=== PATIENT | male | born 1955 | race Caucasian/White ===

== ENCOUNTER 2017-12-04 16:56 | Observation (INO) | payer OTHER ==
[~2017-12-04] VITALS: Ht 172.7 cm; Wt 95.1 kg
[2017-12-04] MEDS ORDERED: SODIUM CHLORIDE 0.9% 1000ML 1,000 ML IV STA (17:10)
[2017-12-04] MEDS ORDERED: OPTIRAY 320 IV PRN (17:30)
[2017-12-04 17:47] LABS: BASO % 0.3 %; BASO ABS # 0.03 K/uL (0-0.2); EOS % 0.2 %; EOS ABS # 0.02 K/uL (0-0.5); HEMATOCRIT 42.3 % (42-52); HEMOGLOBIN 15.5 g/dL (14.0-18.0); IG# 0.03 K/uL (0.00-0.02); LYMPH % 23.7 %; LYMPH ABS # 2.11 K/uL (1.2-3.4); MEAN CELL VOLUME 85.5 fL (80-100); MEAN CORPUSCULAR HEMOGLOBIN 31.3 pg (25-34); MEAN CORPUSCULAR HGB CONC 36.6 g/dl (32-36); MEAN PLATELET VOLUME 9.6 fL (7.4-10.4); MONO % 6.9 %; MONO ABS # 0.61 K/uL (0.11-0.59); NEUT % 68.6 %; NEUT ABS # 6.09 K/uL (1.4-6.5); PLATELET COUNT 233 K/uL (130-400); RED CELL DISTRIBUTION WIDTH SD 40.7 fL (36.4-46.3); WHITE BLOOD COUNT 8.89 K/uL (4.8-10.8)
[2017-12-04 18:03] LABS: ALT/SGPT 33 U/L (12-78); BLOOD UREA NITROGEN 7 mg/dl (7-18); CARBON DIOXIDE 23 mmol/L (21-32); CREATININE 0.77 mg/dl (0.60-1.40); GLUCOSE 111 mg/dl (70-99); LIPASE 100 U/L (73-393); POTASSIUM 3.4 mmol/L (3.5-5.1); SODIUM 129 mmol/L (136-145)
[2017-12-04 18:08] LABS: ALKALINE PHOSPHATASE 59 U/L (45-117); AST/SGOT 25 U/L (15-37); TOTAL PROTEIN 8.2 gm/dl (6.4-8.2)
[2017-12-04 18:12] LABS: PTT PATIENT 27.8 SECONDS (21.0-31.0)
--- NOTE | 2017-12-04 19:09 | DIAGNOSTIC IMAGING REPORT ---
CT ABD/PELVIS IV CONTRAST ONLY CLINICAL HISTORY: Abdominal pain. Rectal bleeding COMPARISON STUDY: None. TECHNIQUE: Following the IV administration of 93 mL of Optiray-320, CT scan of the abdomen and pelvis was performed from the lung bases to the proximal femurs. Images are reviewed in the axial, sagittal, and coronal planes. IV contrast was administered without complication. A dose lowering technique was utilized adhering to the principles of ALARA. CT DOSE: 748.71 mGy.cm FINDINGS: Lower chest: There is a 12 mm left lower lobe lung cyst. There is a small hiatal hernia Liver: The contrast-enhanced liver is normal in size, contour, and attenuation. There is no intrahepatic biliary ductal dilatation. The hepatic veins and portal veins are patent. Gallbladder: Unremarkable. Spleen: Normal in size and attenuation. Pancreas: Unremarkable. Adrenal glands: There is mild adrenal gland thickening Kidneys: There is symmetric renal cortical enhancement. The kidneys are normal in size without hydronephrosis. Bowel: There are no transition zones indicate bowel obstruction. The appendix appears normal. There is colonic diverticulosis. There are no acute peridiverticular inflammatory changes. Peritoneum: There is no intraperitoneal free air or abdominal ascites. Vasculature: The abdominal aorta is normal in course and caliber. Adenopathy: None. Pelvic viscera: The bladder is mildly distended. The prostate is mildly enlarged. Skeletal structures: No destructive osseous lesions are seen. There is a 2 cm subcutaneous soft tissue nodule within the midline lower back likely representing a sebaceous cyst IMPRESSION: 1. No evidence of bowel obstruction. No evidence of free air 2. Normal appendix. 3. Diverticulosis. No evidence of acute diverticulitis 4. Mildly distended urinary bladder Electronically signed by: Slade Jesus M.D. 12/04/2017 7:08 PM Dictated Date/Time: 12/04/2017 7:04 PM
--- NOTE | 2017-12-04 19:40 | EMERGENCY ROOM VISIT NOTE ---
History Report prepared by Shirley: Rima Gomez Under the Supervision of: Dr. Balaji Izaguirre M.D. First contact with patient: 17:08 Chief Complaint: RECTAL BLEEDING Stated Complaint: RECTAL BLEEDING Nursing Triage Summary: triage note: pt reports intermittent rectal bleeding since last night. History of Present Illness The patient is a 62 year old male who presents to the Emergency Room with complaints of persistent rectal bleeding starting last night. The patient was watching the Super Bowl and drinking alcohol last night. He stood up and could feel the blood running down his leg. The blood was red. The bleeding eventually stopped. He went to the bathroom twice today and had bleeding each time. He also had bleeding this afternoon after he stood up from his chair. He has been drinking a lot of water today and urinating often. He denies any fever, chills, cough, congestion, abdominal pain, nausea, vomiting, diarrhea, chest pain, SOB, headache, or dizziness. He has had rectal bleeding in the past, but it usually resolves quickly. He has never had this much bleeding before. He had a colonoscopy in 2013 which found diverticulosis, rectal polyps, and hemorrhoids. He had sclerotherapy. He drinks 6 cans of beer daily. He is not on any blood thinners. He has a history of hepatitis C and hypertension. He denies any history of cirrhosis. Source of History: patient Onset: last night Position: other (rectal) Quality: other (bleeding) Timing: other (persistent) Associated Symptoms: No fevers, No chills, No headache, No cough, No chest pain, No SOB, No nausea, No vomiting, No abdominal pain, No diarrhea Review of Systems See HPI for pertinent positives and negatives. A total of ten systems were reviewed and were otherwise negative. Past Medical & Surgical Medical Problems: (1) Hepatitis C (2) Hypertension Family History No pertinent family history stated. Social History Smoking Status: Current Every Day Smoker Alcohol Use: other (daily) Allergies Coded Allergies: No Known Allergies (Unverified , 12/04/17) Physical Exam Vital Signs Date Time Temp Pulse Resp B/P (MAP) Pulse Ox O2 Delivery O2 Flow Rate FiO2 12/04/17 21:08 80 20 146/89 98 Room Air 12/04/17 20:00 36.8 84 20 170/80 97 Room Air 12/04/17 18:18 90 12/04/17 17:45 90 20 171/89 97 Room Air 12/04/17 17:00 36.6 89 20 186/97 93 Room Air Physical Exam GENERAL: Awake, alert, relatively well-appearing, in no distress HENT: Normocephalic, atraumatic. Dry mucous membranes. Oropharynx unremarkable. EYES: Normal conjunctiva. Sclera non-icteric. NECK: Supple. No nuchal rigidity. FROM. No JVD. RESPIRATORY: Clear to auscultation. CARDIAC: Regular rate, normal rhythm. Extremities warm and well perfused. Pulses equal. ABDOMEN: Soft, non-distended. No tenderness to palpation. No rebound or guarding. No masses. RECTAL: No external hemorrhoids. Dark red blood per rectum. MUSCULOSKELETAL: Chest examination reveals no tenderness. The back is symmetrical on inspection without obvious abnormality. There is no CVA tenderness to palpation. No joint edema. LOWER EXTREMITIES: Calves are equal size bilaterally and non-tender. No edema. No discoloration. NEURO: Normal sensorium. No sensory or motor deficits noted. SKIN: No rash or jaundice noted. Medical Decision & Procedures ER Provider Diagnostic Interpretation: Radiology results as stated below per my review and radiologist interpretation: CT ABD/PELVIS IV CONTRAST ONLY CLINICAL HISTORY: Abdominal pain. Rectal bleeding COMPARISON STUDY: None. TECHNIQUE: Following the IV administration of 93 mL of Optiray-320, CT scan of the abdomen and pelvis was performed from the lung bases to the proximal femurs. Images are reviewed in the axial, sagittal, and coronal planes. IV contrast was administered without complication. A dose lowering technique was utilized adhering to the principles of ALARA. CT DOSE: 748.71 mGy.cm FINDINGS: Lower chest: There is a 12 mm left lower lobe lung cyst. There is a small hiatal hernia Liver: The contrast-enhanced liver is normal in size, contour, and attenuation. There is no intrahepatic biliary ductal dilatation. The hepatic veins and portal veins are patent. Gallbladder: Unremarkable. Spleen: Normal in size and attenuation. Pancreas: Unremarkable. Adrenal glands: There is mild adrenal gland thickening Kidneys: There is symmetric renal cortical enhancement. The kidneys are normal in size without hydronephrosis. Bowel: There are no transition zones indicate bowel obstruction. The appendix appears normal. There is colonic diverticulosis. There are no acute peridiverticular inflammatory changes. Peritoneum: There is no intraperitoneal free air or abdominal ascites. Vasculature: The abdominal aorta is normal in course and caliber. Adenopathy: None. Pelvic viscera: The bladder is mildly distended. The prostate is mildly enlarged. Skeletal structures: No destructive osseous lesions are seen. There is a 2 cm subcutaneous soft tissue nodule within the midline lower back likely representing a sebaceous cyst IMPRESSION: 1. No evidence of bowel obstruction. No evidence of free air 2. Normal appendix. 3. Diverticulosis. No evidence of acute diverticulitis 4. Mildly distended urinary bladder Electronically signed by: Slade Jesus M.D. 12/04/2017 7:08 PM Dictated Date/Time: 12/04/2017 7:04 PM Laboratory Results 12/04/17 17:27 Red Blood Count 4.95, Mean Corpuscular Volume 85.5, Mean Corpuscular Hemoglobin 31.3, Mean Corpuscular Hemoglobin Concent 36.6, Mean Platelet Volume 9.6, Neutrophils (%) (Auto) 68.6, Lymphocytes (%) (Auto) 23.7, Monocytes (%) (Auto) 6.9, Eosinophils (%) (Auto) 0.2, Basophils (%) (Auto) 0.3, Neutrophils # (Auto) 6.09, Lymphocytes # (Auto) 2.11, Monocytes # (Auto) 0.61, Eosinophils # (Auto) 0.02, Basophils # (Auto) 0.03 12/04/17 17:27 Test 12/04/17 17:27 White Blood Count 8.89 K/uL (4.8-10.8) Red Blood Count 4.95 M/uL (4.7-6.1) Hemoglobin 15.5 g/dL (14.0-18.0) Hematocrit 42.3 % (42-52) Mean Corpuscular Volume 85.5 fL (80-100) Mean Corpuscular Hemoglobin 31.3 pg (25-34) Mean Corpuscular Hemoglobin Concent 36.6 g/dl (32-36) Platelet Count 233 K/uL (130-400) Mean Platelet Volume 9.6 fL (7.4-10.4) Neutrophils (%) (Auto) 68.6 % Lymphocytes (%) (Auto) 23.7 % Monocytes (%) (Auto) 6.9 % Eosinophils (%) (Auto) 0.2 % Basophils (%) (Auto) 0.3 % Neutrophils # (Auto) 6.09 K/uL (1.4-6.5) Lymphocytes # (Auto) 2.11 K/uL (1.2-3.4) Monocytes # (Auto) 0.61 K/uL (0.11-0.59) Eosinophils # (Auto) 0.02 K/uL (0-0.5) Basophils # (Auto) 0.03 K/uL (0-0.2) RDW Standard Deviation 40.7 fL (36.4-46.3) RDW Coefficient of Variation 13.0 % (11.5-14.5) Immature Granulocyte % (Auto) 0.3 % Immature Granulocyte # (Auto) 0.03 K/uL (0.00-0.02) Prothrombin Time 10.0 SECONDS (9.0-12.0) Prothromb Time International Ratio 1.0 (0.9-1.1) Activated Partial Thromboplast Time 27.8 SECONDS (21.0-31.0) Partial Thromboplastin Ratio 1.1 Anion Gap 10.0 mmol/L (3-11) Est Creatinine Clear Calc Drug Dose 111.1 ml/min Estimated GFR () 111.2 Estimated GFR (Non- 95.9 BUN/Creatinine Ratio 8.5 (10-20) Calcium Level 9.0 mg/dl (8.5-10.1) Total Bilirubin 0.7 mg/dl (0.2-1) Direct Bilirubin 0.2 mg/dl (0-0.2) Aspartate Amino Transf (AST/SGOT) 25 U/L (15-37) Alanine Aminotransferase (ALT/SGPT) 33 U/L (12-78) Alkaline Phosphatase 59 U/L (45-117) Troponin I < 0.015 ng/ml (0-0.045) Total Protein 8.2 gm/dl (6.4-8.2) Albumin 4.0 gm/dl (3.4-5.0) Lipase 100 U/L (73-393) Laboratory results reviewed by me Medications Administered Medications (Trade) Dose Ordered Sig/Anais Route Start Time Stop Time Status Last Admin Dose Admin Sodium Chloride 1,000 ml @ 999 mls/hr Q1H1M STAT IV 12/04/17 17:10 12/04/17 18:10 DC 12/04/17 17:49 999 MLS/HR ECG Indication: other (rectal bleeding) Rate (beats per minute): 88 Rhythm: normal sinus Findings: no acute ischemic change, other (normal axis) Change: Patient's electrocardiogram interpreted by me. ED Course 1709: The patient was evaluated in room B9. A complete history and physical exam was performed. 1929: Upon reexamination, the patient was resting comfortably. I discussed the test results and treatment plan with him. The patient will be evaluated for further management. 2019: I discussed the patient with RISA French hospitalist - He will evaluate the patient for further treatment. Medical Decision I reviewed the patient's past medical history, medications, and the nursing notes as described above. Differential diagnosis: lower GI bleed, diverticular, hemorrhoidal, polyps, upper GI bleed. The patient is a 62-year-old gentleman with a past medical history of Hep C and prior lower GI bleeding believed to be due to internal hemorrhoids however also with a history of diverticuli and colonic polyps presents emergency Department with red blood per rectum which began yesterday per history of present illness. On arrival the patient is no acute distress, afebrile stable vital signs. Abdomen is soft nontender nondistended. Rectal exam demonstrates dark red clots without active hemorrhage. H/H within normal limits. Sodium 129. BUN 7. CT abd/pelvis unremarkable. Remains hemodynamically stable without active hemorrhage thus will hold on transfusion at this time. Will admit for likely GI consultation and colonoscopy. Medication Reconcilliation Current Medication List: was personally reviewed by me Blood Pressure Screening Patient's blood pressure: Elevated blood pressure Referred to hospitalist. Consults Time Called: 1928 Consulting Physician: RISA French hospitalist Returned Call: 2018 I discussed the patient with him - He will evaluate the patient for further treatment. Impression Primary Impression: Lower GI bleeding Scribe Attestation The scribe's documentation has been prepared under my direction and personally reviewed by me in its entirety. I confirm that the note above accurately reflects all work, treatment, procedures, and medical decision making performed by me. Departure Information Dispostion Being Evaluated By Hospitalist Referrals Cornel Galicia D.O. (PCP) Patient Instructions My [facility]
[2017-12-04] MEDS ORDERED: MAGNESIUM HYDROXIDE SUSP 30 ML UDC PO PRN (20:45)
[2017-12-04] MEDS ORDERED: ALUMINUM/MAGNESIUM/SIMETH (MAALOX MAX) 30 ML UDC PO PRN (20:45)
[2017-12-04] MEDS ORDERED: ONDANSETRON INJ 2 MG/ML 2 ML VIAL IV PRN (20:45)
[2017-12-04] MEDS ORDERED: ACETAMINOPHEN 325 MG TAB PO PRN (20:45)
[2017-12-04] MEDS ORDERED: NITROGLYCERIN 0.4 MG SL PER TAB CHARGE SL PRN (20:45)
[2017-12-04] MEDS ORDERED: LORAZEPAM 2 MG/ML 1 ML VIAL IV PRN (20:45)
[2017-12-04] MEDS ORDERED: POLYETHYLENE (MIRALAX) 17 GM PACK PO PRN (20:45)
--- NOTE | 2017-12-04 21:00 | History and Physical ---
History & Physical Date & Time of Service: Dec 04, 2017 at 20:35 Chief Complaint: Rectal Bleeding Primary Care Physician: Cornel Galicia D.O. History of Present Illness Source: patient, family 62 year old male with hepatitis C, chronic alcohol use, diverticulosis and, hemorrhoids, HTN, HLD, who presents to the ED with 6 episodes of BRB per rectum since last night, 4 of them involved just leaking blood while sitting/standing - large enough to soak through underwear and pants and drip down legs, the other 2 associated with bowel movement. Patient does not recall significant clotting. He also had vomiting last night secondary to increased drinking from baseline 6 beers nightly, with the addition of 6 shots of Sambuca. Denies hematemesis. No abdominal pain or nausea with episodes, no constipation or diarrhea. Takes 2 doses of Metamucil daily, plus prunes, and bran cereals to keep himself regular. He also does takes aspirin 81mg daily. He denies dizziness/lightheaded, although notes his legs were trembling. No CP or SOB. No fatigue, myalgia, numbers or tingling. His last colonoscopy was in 2013. He has had multiple similar episodes in the past but they usually resolved after 1 episode of BRB. And though he initially used to follow GI with [facility], he has not had a follow up appt with them in a while. He denies any history of cirrhosis. He otherwise denies fevers/chills, headaches, palpitations, lower extremity swelling or rashes. He is tolerating food without recent changes in diet, and voiding appropriately. ROS is unremarkable except as noted above. Past Medical/Surgical History Medical Problems: Hepatitis C (dx 2001, had biopsy) Hypertension Diverticulosis Rectal polyps Hemorrhoids Surgical Problems: Rectal sclerotherapy Colonoscopy (2006, 2013) - Colonoscopy in 2013 mild diverticulosis, 2 rectal polyps removed by hot bx, large internal hemorrhoids s/p sclerotherapy Family History No family history of colon cancer. Dad and brother had prostate cancer. Mother had DM, CHF, COPD, aneurysm Social History Smoking Status: Current Every Day Smoker (45 years of smoking 3/4 pack per day = ~35 pack year hx) Smokeless Tobacco Use: No Alcohol Use: heavy (6 beers daily) Drug Use: none, marijuana (couple times a year) Housing status: lives alone Occupational Status: retired (Used to work as power industry, at desk job) Immunizations History of Influenza Vaccine: No History of Tetanus Vaccine?: No History of Pneumococcal: No History of Hepatitis B Vaccine: No Multi-Drug Resistant Organisms History of MDRO: No Allergies Coded Allergies: No Known Allergies (Unverified , 12/04/17) Physical Exam Vital Signs Date Time Temp Pulse Resp B/P (MAP) Pulse Ox O2 Delivery O2 Flow Rate FiO2 12/04/17 18:18 90 12/04/17 17:45 90 20 171/89 97 Room Air 12/04/17 17:00 36.6 89 20 186/97 93 Room Air General Appearance: WD/WN, no apparent distress Head: normocephalic, atraumatic Eyes: normal inspection ENT: hearing grossly normal, pharynx normal Neck: supple, no adenopathy Respiratory/Chest: normal breath sounds, no respiratory distress, no accessory muscle use Cardiovascular: regular rate, rhythm, no murmur, normal peripheral pulses Abdomen/GI: normal bowel sounds, non tender, soft Back: normal inspection, no CVA tenderness Extremities/Musculoskelatal: no calf tenderness, normal capillary refill, no pedal edema Neurologic/Psych: alert, normal mood/affect, oriented x 3 Skin: normal color, warm/dry, no rash Diagnostics Laboratory Results Results Past 24 Hours Test 12/04/17 17:27 Range/Units White Blood Count 8.89 4.8-10.8 K/uL Red Blood Count 4.95 4.7-6.1 M/uL Hemoglobin 15.5 14.0-18.0 g/dL Hematocrit 42.3 42-52 % Mean Corpuscular Volume 85.5 80-100 fL Mean Corpuscular Hemoglobin 31.3 25-34 pg Mean Corpuscular Hemoglobin Concent 36.6 32-36 g/dl Platelet Count 233 130-400 K/uL Mean Platelet Volume 9.6 7.4-10.4 fL Neutrophils (%) (Auto) 68.6 % Lymphocytes (%) (Auto) 23.7 % Monocytes (%) (Auto) 6.9 % Eosinophils (%) (Auto) 0.2 % Basophils (%) (Auto) 0.3 % Neutrophils # (Auto) 6.09 1.4-6.5 K/uL Lymphocytes # (Auto) 2.11 1.2-3.4 K/uL Monocytes # (Auto) 0.61 0.11-0.59 K/uL Eosinophils # (Auto) 0.02 0-0.5 K/uL Basophils # (Auto) 0.03 0-0.2 K/uL RDW Standard Deviation 40.7 36.4-46.3 fL RDW Coefficient of Variation 13.0 11.5-14.5 % Immature Granulocyte % (Auto) 0.3 % Immature Granulocyte # (Auto) 0.03 0.00-0.02 K/uL Prothrombin Time 10.0 9.0-12.0 SECONDS Prothromb Time International Ratio 1.0 0.9-1.1 Activated Partial Thromboplast Time 27.8 21.0-31.0 SECONDS Partial Thromboplastin Ratio 1.1 Sodium Level 129 136-145 mmol/L Potassium Level 3.4 3.5-5.1 mmol/L Chloride Level 96 98-107 mmol/L Carbon Dioxide Level 23 21-32 mmol/L Anion Gap 10.0 3-11 mmol/L Blood Urea Nitrogen 7 7-18 mg/dl Creatinine 0.77 0.60-1.40 mg/dl Est Creatinine Clear Calc Drug Dose 111.1 ml/min Estimated GFR () 111.2 Estimated GFR (Non- 95.9 BUN/Creatinine Ratio 8.5 10-20 Random Glucose 111 70-99 mg/dl Calcium Level 9.0 8.5-10.1 mg/dl Total Bilirubin 0.7 0.2-1 mg/dl Direct Bilirubin 0.2 0-0.2 mg/dl Aspartate Amino Transf (AST/SGOT) 25 15-37 U/L Alanine Aminotransferase (ALT/SGPT) 33 12-78 U/L Alkaline Phosphatase 59 45-117 U/L Troponin I < 0.015 0-0.045 ng/ml Total Protein 8.2 6.4-8.2 gm/dl Albumin 4.0 3.4-5.0 gm/dl Lipase 100 73-393 U/L Diagnostic Radiology CT ABD/PELVIS IV CONTRAST ONLY CLINICAL HISTORY: Abdominal pain. Rectal bleeding COMPARISON STUDY: None. TECHNIQUE: Following the IV administration of 93 mL of Optiray-320, CT scan of the abdomen and pelvis was performed from the lung bases to the proximal femurs. Images are reviewed in the axial, sagittal, and coronal planes. IV contrast was administered without complication. A dose lowering technique was utilized adhering to the principles of ALARA. CT DOSE: 748.71 mGy.cm FINDINGS: Lower chest: There is a 12 mm left lower lobe lung cyst. There is a small hiatal hernia Liver: The contrast-enhanced liver is normal in size, contour, and attenuation. There is no intrahepatic biliary ductal dilatation. The hepatic veins and portal veins are patent. Gallbladder: Unremarkable. Spleen: Normal in size and attenuation. Pancreas: Unremarkable. Adrenal glands: There is mild adrenal gland thickening Kidneys: There is symmetric renal cortical enhancement. The kidneys are normal in size without hydronephrosis. Bowel: There are no transition zones indicate bowel obstruction. The appendix appears normal. There is colonic diverticulosis. There are no acute peridiverticular inflammatory changes. Peritoneum: There is no intraperitoneal free air or abdominal ascites. Vasculature: The abdominal aorta is normal in course and caliber. Adenopathy: None. Pelvic viscera: The bladder is mildly distended. The prostate is mildly enlarged. Skeletal structures: No destructive osseous lesions are seen. There is a 2 cm subcutaneous soft tissue nodule within the midline lower back likely representing a sebaceous cyst IMPRESSION: 1. No evidence of bowel obstruction. No evidence of free air 2. Normal appendix. 3. Diverticulosis. No evidence of acute diverticulitis 4. Mildly distended urinary bladder EKG Normal sinus rhythm Normal ECG HR 88, QTc 454 Impression Assessment and Plan 62 year old male with hepatitis C, chronic alcohol use, diverticulosis and, hemorrhoids, HTN, HLD, who presents to the ED with 6 episodes of BRB per rectum Lower GI bleeding - GI consulted - Hb 15.5 on admission, transfusion not warranted currently - Trend H/H - Hold aspirin for now Hepatitis C - Hep C quant ordered, if elevated consider genotyping Bladder distension - as noted on CT - Patient denies urinary symptoms - Bladder scan with straight cath if unable to void Electrolyte abnormalities- Na+ 129, K+ 3.4 - likely secondary to vomiting/ dehydration - IVF NSS + KCl 20mEQ @ 100cc/hr - Trend BMP Alcohol use - AWSS protocol initiated HTN - Continue home meds: metoprolol 100mg daily, lisinopril 40mg daily, amlodipine 10mg daily, HCTz 12.5mg daily VTE ppx - SCDs - Chemical ppx C/I due to GI bleed FULL code Attending addendum: I have physically seen this patient, have supervised the medical residents activities, and agree with the H&P unless as otherwise noted. Assessment and Plan: Lower GI bleed/bright red blood per rectum-- Observation admission to telemetry for close monitoring H&H every 6 hours Nothing by mouth except essential medications Hold aspirin NSS + KCl 20 MEQ at 100 mils per hour Consult gastroenterology Dr. Munoz Hepatitis C-- Known diagnosis Order viral RNA quantitative load Will need genotyping Heavy alcohol use-- AWSS protocol. Patient made aware of association between alcohol excess and hepatitis C Level of Care Med/Surg Advanced Directives Existing Advance Directive: No Existing Living Will: No Existing Power of Review Coordinator: No Existing Health Care Proxy: Yes (Sister, Trixie) Resuscitation Status FULL RESUSCITATION VTE Prophylaxis VTE Risk Assessment Done? Y/N: Yes Risk Level: Moderate Given or contraindicated: SCD's Resident Tracking Resident Involvement: Resident Care Provided Care Provided: Adult Hospital Medicine
[2017-12-04 22:15] VITALS: BP 160/79; PULSE 78; TEMP 36.9; O2SAT 94; Ht 172.7 cm; Wt 95.1 kg
[2017-12-04] MEDS ORDERED: NSS + 20MEQ KCL 1000ML 1,000 ML IV SCH (22:30)
[2017-12-04 23:08] VITALS: BP 135/69; PULSE 76; TEMP 36.9; O2SAT 96
[2017-12-05] VITALS (7 sets, daily range): BP systolic 146–172; BP diastolic 68–91; PULSE 67–80; TEMP 36.5–36.9; O2SAT 95–99
[2017-12-05] MEDS ORDERED: INFLUENZA ADMINISTRATION CHARGE ONE (00:15)
[2017-12-05] MEDS ORDERED: INFLUENZA VIRUS QUAD VACCINE 0.5 ML SYR IM. ONE (00:15)
[2017-12-05] MEDS ORDERED: IV FLUIDS COMPLETED PRN (02:30)
[2017-12-05] MEDS ORDERED: FAMOTIDINE IV INJ 20 MG in DEXTROSE 5% 100ML 100 ML IV SCH (08:15)
[2017-12-05] MEDS: MULTIVITAMIN TAB PO SCH (08:25)
[2017-12-05] MEDS: THIAMINE HCL 100 MG TAB PO SCH (08:25)
[2017-12-05] MEDS: SODIUM CHLORIDE 0.9% 1000ML 1,000 ML IV SCH ×2 (08:25→18:06)
[2017-12-05] MEDS: LISINOPRIL 40 MG TAB PO SCH (08:27)
[2017-12-05] MEDS: AMLODIPINE BESYLATE 5 MG TAB PO SCH (08:27)
[2017-12-05] MEDS: HYDROCHLOROTHIAZIDE 25 MG TAB PO SCH (08:27)
[2017-12-05] MEDS: METOPROLOL SUCC 50MG EXT REL TAB PO SCH (08:27)
--- NOTE | 2017-12-05 08:32 | Family Medicine Progress Note ---
Progress Note Date of Service Dec 05, 2017. Subjective Pt evaluation today including: conversation w/ patient, physical exam, chart review, conversation w/ personal consultant, review of inpatient medication list Pain: none PO Intake: NPO Voiding: no voiding problems Patient feeling well and without any further bleeding episodes Denies any bowel movements, Denies any abdominal pain, nausea vomiting, fevers or chills Constitutional: No fever, No chills Cardiovascular: No chest pain, No edema, No palpitations Abdomen: No pain, No nausea, No vomiting, No diarrhea, No GI bleeding Male : No dysuria, No urinary frequency, No incontinence Skin: No rash, No itch, No new/changing skin lesions Medications Current Inpatient Medications Medications (Trade) Dose Ordered Sig/Anais Route Start Time Stop Time Status Last Admin Dose Admin Ioversol (Optiray 320) 100 ml UD PRN IV 12/04/17 17:30 12/08/17 17:29 Sodium Chloride 1,000 ml @ 100 mls/hr Q10H IV 12/05/17 08:40 01/04/18 08:39 Potassium Chloride/Sodium Chloride 1,000 ml @ 100 mls/hr Q10H IV 12/04/17 22:30 12/05/17 08:29 12/04/17 23:24 100 MLS/HR Acetaminophen (Tylenol Tab) 650 mg Q4H PRN PO 12/04/17 20:45 01/03/18 20:44 Al Hydrox/Mg Hydrox/Simethicone (Maalox Max Susp) 15 ml Q4H PRN PO 12/04/17 20:45 01/03/18 20:44 Magnesium Hydroxide (Milk Of Magnesia Susp) 30 ml Q12H PRN PO 12/04/17 20:45 01/03/18 20:44 Ondansetron HCl (Zofran Inj) 4 mg Q6H PRN IV 12/04/17 20:45 01/03/18 20:44 Nitroglycerin (Nitrostat Tab) 0.4 mg UD PRN SL 12/04/17 20:45 01/03/18 20:44 Polyethylene (Miralax Powder Packet) 17 gm DAILY PRN PO 12/04/17 20:45 01/03/18 20:44 Thiamine HCl (Vitamin B-1 Tab) 100 mg QAM PO 12/05/17 09:00 01/04/18 08:59 Multivitamins (Multivitamin Tab) 1 tab QAM PO 12/05/17 09:00 01/04/18 08:59 Folic Acid (Folvite Tab) 1 mg QAM PO 12/05/17 09:00 01/04/18 08:59 Lorazepam (Ativan Inj) 1 mg ONE PRN IV 12/04/17 20:45 Miscellaneous (Iv Fluids Completed) 1 ea PRN PRN N/A 12/05/17 02:30 12/05/18 02:29 Metoprolol Succinate (Toprol Xl Tab) 100 mg QAM PO 12/05/17 09:00 01/04/18 08:59 Lisinopril (Zestril Tab) 40 mg QAM PO 12/05/17 09:00 01/04/18 08:59 Hydrochlorothiazide (Hydrochlorothiazide Tab) 12.5 mg QAM PO 12/05/17 09:00 01/04/18 08:59 Amlodipine Besylate (Norvasc Tab) 10 mg QAM PO 12/05/17 09:00 01/04/18 08:59 Famotidine 20 mg/ Dextrose 102 ml @ 200 mls/hr Q12H IV 12/05/17 08:15 01/04/18 08:14 UNV Objective Vital Signs Date Time Temp Pulse Resp B/P (MAP) Pulse Ox O2 Delivery O2 Flow Rate FiO2 12/05/17 07:45 36.9 80 18 152/78 (102) 99 12/05/17 03:58 Room Air 12/05/17 02:55 36.9 67 18 146/71 (96) 97 Room Air 12/05/17 00:00 Room Air 12/04/17 23:08 36.9 76 18 135/69 (91) 96 Room Air 12/04/17 22:15 36.9 78 16 160/79 94 Room Air 12/04/17 21:53 79 20 144/88 98 Room Air 12/04/17 21:08 80 20 146/89 98 Room Air 12/04/17 20:00 36.8 84 20 170/80 97 Room Air 12/04/17 18:18 90 12/04/17 17:45 90 20 171/89 97 Room Air 12/04/17 17:00 36.6 89 20 186/97 93 Room Air Physical Exam General Appearance: WD/WN, no apparent distress ENT: hearing grossly normal, pharynx normal Neck: supple, no JVD, no carotid bruits Respiratory/Chest: lungs clear, no respiratory distress, no accessory muscle use Cardiovascular: regular rate, rhythm, no edema, no murmur Abdomen: normal bowel sounds, non tender, soft Extremities: non-tender, no pedal edema, no calf tenderness Neurologic/Psychiatric: alert, normal mood/affect, oriented x 3 Skin: normal color, warm/dry, no rash Laboratory Results Results Past 24 Hours Test 12/04/17 17:27 12/04/17 21:47 12/04/17 22:45 12/05/17 08:23 Range/Units White Blood Count 8.89 4.8-10.8 K/uL Red Blood Count 4.95 4.7-6.1 M/uL Hemoglobin 15.5 14.0-18.0 g/dL Hematocrit 42.3 42-52 % Mean Corpuscular Volume 85.5 80-100 fL Mean Corpuscular Hemoglobin 31.3 25-34 pg Mean Corpuscular Hemoglobin Concent 36.6 32-36 g/dl Platelet Count 233 130-400 K/uL Mean Platelet Volume 9.6 7.4-10.4 fL Neutrophils (%) (Auto) 68.6 % Lymphocytes (%) (Auto) 23.7 % Monocytes (%) (Auto) 6.9 % Eosinophils (%) (Auto) 0.2 % Basophils (%) (Auto) 0.3 % Neutrophils # (Auto) 6.09 1.4-6.5 K/uL Lymphocytes # (Auto) 2.11 1.2-3.4 K/uL Monocytes # (Auto) 0.61 0.11-0.59 K/uL Eosinophils # (Auto) 0.02 0-0.5 K/uL Basophils # (Auto) 0.03 0-0.2 K/uL RDW Standard Deviation 40.7 36.4-46.3 fL RDW Coefficient of Variation 13.0 11.5-14.5 % Immature Granulocyte % (Auto) 0.3 % Immature Granulocyte # (Auto) 0.03 0.00-0.02 K/uL Prothrombin Time 10.0 9.0-12.0 SECONDS Prothromb Time International Ratio 1.0 0.9-1.1 Activated Partial Thromboplast Time 27.8 21.0-31.0 SECONDS Partial Thromboplastin Ratio 1.1 Sodium Level 129 136-145 mmol/L Potassium Level 3.4 3.5-5.1 mmol/L Chloride Level 96 98-107 mmol/L Carbon Dioxide Level 23 21-32 mmol/L Anion Gap 10.0 3-11 mmol/L Blood Urea Nitrogen 7 7-18 mg/dl Creatinine 0.77 0.60-1.40 mg/dl Est Creatinine Clear Calc Drug Dose 111.1 ml/min Estimated GFR () 111.2 Estimated GFR (Non- 95.9 BUN/Creatinine Ratio 8.5 10-20 Random Glucose 111 70-99 mg/dl Calcium Level 9.0 8.5-10.1 mg/dl Total Bilirubin 0.7 0.2-1 mg/dl Direct Bilirubin 0.2 0-0.2 mg/dl Aspartate Amino Transf (AST/SGOT) 25 15-37 U/L Alanine Aminotransferase (ALT/SGPT) 33 12-78 U/L Alkaline Phosphatase 59 45-117 U/L Troponin I < 0.015 0-0.045 ng/ml Total Protein 8.2 6.4-8.2 gm/dl Albumin 4.0 3.4-5.0 gm/dl Lipase 100 73-393 U/L Vitamin B12 Level 383 211-911 pg/mL Folate 16.41 >5.38 ng/mL Urine Color YELLOW Urine Appearance CLEAR CLEAR Urine pH 8.0 4.5-7.5 Urine Specific Startex 1.027 1.000-1.030 Urine Protein NEG NEG Urine Glucose (UA) NEG NEG Urine Ketones 1+ NEG Urine Occult Blood TRACE NEG Urine Nitrite NEG NEG Urine Bilirubin NEG NEG Urine Urobilinogen NEG NEG Urine Leukocyte Esterase NEG NEG Urine WBC (Auto) 0 0-5 /hpf Urine RBC (Auto) 0-4 0-4 /hpf Urine Hyaline Casts (Auto) 0 0-5 /lpf Urine Epithelial Cells (Auto) 0-5 0-5 /lpf Urine Bacteria (Auto) NEG NEG Urine Opiates Screen NEG NEG Urine Methadone, Qualitative NEG NEG Urine Barbiturates NEG NEG Urine Phencyclidine (PCP) Level NEG NEG Ur Amphetamine/Methamphetamine NEG NEG MDMA (Ecstasy) Screen NEG NEG Urine Benzodiazepines Screen NEG NEG Urine Cocaine Metabolite NEG NEG Urine Marijuana (THC) NEG NEG Assessment and Plan 62 year old male with hepatitis C, chronic alcohol use, diverticulosis and, hemorrhoids, HTN, HLD, who presents to the ED with 6 episodes of BRB per rectum GI bleed - ? secondary to bleeding internal haemorhoids vs intestinal mass - Last colonoscopy in 2013 showed large internal haemmorhoids which received sclerotherapy and 2 rectal polyps which were removed - No abdominal pain or nausea therefore unlikely upper GI bleed, suspect secondary to internal haemmorhoids vs large intestine polyp/mass - GI consulted - Vitals stable and Hb 15.5 on admission - Trend H/H, repeat this AM - Hold aspirin for now Hepatitis C - Hep C quant ordered Bladder distension - as noted on CT - Patient denies urinary symptoms - Bladder scan with straight cath if unable to void Electrolyte abnormalities - Na+ 129, K+ 3.4 - likely secondary to vomiting/dehydration - IVF NSS + KCl 20mEQ @ 100cc/hr - Trend BMP Alcohol use - AWSS protocol initiated HTN - Continue home meds: metoprolol 100mg daily, lisinopril 40mg daily, amlodipine 10mg daily, HCTz 12.5mg daily VTE ppx - SCDs - Chemical ppx C/I due to GI bleed FULL code Continued [facility] stay due to: other (GI bleeding) Discharge planning: home Reviewed: Pt Seen/Exam by Me History no new concerns Constitutional: denies: fever Respiratory: negative: short of breath Cardiovascular: denies chest pain General Appearance: no apparent distress Respiratory: lungs clear, no respiratory distress Cardiovascular: regular rate, rhythm Gastrointestinal: soft Neurologic/Psychiatric: alert, oriented x 3 Skin Characteristics: warm/dry Assessment/Plan Resident Physician Supervision Note: I independently interviewed and examined the patient and verified the kennedy history and physical, reviewed labs and image studies, discussed the case with the resident Dr. Freitas and agree with the findings and care plan.
[2017-12-05 08:33] LABS: HEMATOCRIT 38.8 % (42-52); HEMOGLOBIN 13.7 g/dL (14.0-18.0); MEAN CELL VOLUME 87.4 fL (80-100); MEAN CORPUSCULAR HEMOGLOBIN 30.9 pg (25-34); MEAN CORPUSCULAR HGB CONC 35.3 g/dl (32-36); MEAN PLATELET VOLUME 9.1 fL (7.4-10.4); PLATELET COUNT 187 K/uL (130-400); RED CELL DISTRIBUTION WIDTH CV 13.3 % (11.5-14.5); RED CELL DISTRIBUTION WIDTH SD 42.6 fL (36.4-46.3); WHITE BLOOD COUNT 6.72 K/uL (4.8-10.8)
[2017-12-05 09:05] LABS: CALCIUM 8.2 mg/dl (8.5-10.1); CREATININE 0.66 mg/dl (0.60-1.40); POTASSIUM 3.6 mmol/L (3.5-5.1)
--- NOTE | 2017-12-05 10:57 | GASTROINTESTINAL CONSULTATION ---
DATE OF CONSULTATION: 12/05/2017 CHIEF COMPLAINT: Lower gastrointestinal hemorrhage (bright red blood per rectum) and also known history of hepatitis C. HISTORY OF PRESENT ILLNESS: Mr. Montague is a 62-year-old white male who presented to the Emergency Room with couple days of bright red blood per rectum that he describes as voluminous in nature. This was all painless bleeding but had problems with blood actually running down his legs and soaking his undergarments. The patient has had similar symptoms as this most recently in 08/2017, although it did not last nearly this long. In the past, he has had prior events and had received a course of sclerotherapy of an internal hemorrhoid at [facility] in [place] for hemorrhoids. The patient provided an endoscopy report from 01/2014 which revealed diverticular disease in the sigmoid colon, small polyps of unknown pathology and the hemorrhoids described above treated as above. The patient has had several colonoscopies over the years with polyps removed but this was the only endoscopic treatment he recalls. There is no family history of colorectal cancer or inflammatory bowel disease. The patient also has a history of chronic hepatitis C infection that was first identified in 2001. He did recall undergoing a liver biopsy, for which he said it was okay and is not sure of all the details of it, but at that point he declined to receive therapy for this which would have been, at that time, interferon/ribavirin based. The patient does have a steady and daily alcohol intake of 6 beers a day and over the weekend had some trouble with some nausea and stomach upset on Monday into Monday. He was increasing his alcoholic intake with several more beers and whiskey. PAST MEDICAL HISTORY: Includes hepatitis C, hypertension, diverticulosis, rectal polyps, hemorrhoids. HOME MEDICATIONS: Include hydrochlorothiazide. ALLERGIES: He has no known drug allergies. FAMILY HISTORY: Noncontributory for colorectal cancer, liver diseases, pancreatic disorders or inflammatory bowel disease. SOCIAL HISTORY: The patient smokes approximately three-quarters a pack of cigarettes a day, uses 6 beers daily. 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 REVIEW OF SYSTEMS: Otherwise noncontributory based on 13-point exam except for mentioned above. He has had prior upper endoscopies as well, but by his recollection, none of these ever reflected changes consistent with portal hypertension. These by his recollection were performed for his episodes of GI bleeding. None of these, however, that he recalls were either hematemesis or coffee-ground emesis. PHYSICAL EXAMINATION: VITAL SIGNS: On admission, the patient was afebrile at 36.6, pulse 89, respirations 20, blood pressure 196/97, 93% on room air. GENERAL: The patient is awake, alert and oriented x3. HEENT: Sclerae anicteric, conjunctivae moist. Oral mucosa moist. Head normocephalic, atraumatic. NECK: There is no cervical or supraclavicular adenopathy. I do not appreciate thyromegaly. Neck has normal range of motion. NEUROLOGIC: There are no focal neurologic defects. There are no tremors. SKIN: Dry, warm and intact. HEART: Normal S1 and S2. LUNGS: Clear to auscultation without rales, rhonchi or wheezes. ABDOMEN: Soft, nontender, nondistended, with positive bowel sounds. There is no rebound or guarding. I do not appreciate hepatosplenomegaly. There is no evidence of ascites or shifting dullness. There are no abdominal bruits. EXTREMITIES: Normal range of motion. Without clubbing, cyanosis or edema. RECTAL: Deferred. LABORATORY STUDIES: On admission showed white count of 8.8, hemoglobin 15.5, MCV 85, platelets 233,000. INR 1.0. Potassium 3.4 and sodium 129, both of which were slightly low. His BUN and creatinine were 7 and 0.77. Total and direct bilirubin 0.7 and 0.2 respectively. AST 25, ALT 33, alkaline phosphatase 59, total protein 8.2, lipase 100, albumin 4.0. Troponins were negative. The patient had a CT scan that was IV contrast for abdominal pain. This revealed an overall normal study with evidence of diverticulosis without diverticulitis, a mildly distended urinary bladder (the patient reports that he has had a prostate workup which was negative, as his father and brother both had prostate cancer). There is no evidence of bowel obstruction or free air. Specifically, there is no adenopathy. The liver, spleen and pancreas are all normal. There is no evidence for nodularity, steatosis or abnormalities in flow in the hepatic or portal veins. There is no ductal dilation. The gallbladder is unremarkable. Pancreas unremarkable. IMPRESSION AND PLAN: The patient's blood work today shows a slight drift in his hemoglobin down to 13.7, but there has been no bleeding since his arrival at [facility]. His white count is 6.7, platelets 187,000. Potassium is now normal at 3.6. BUN and creatinine remain normal at 6 and 0.66. The patient had hepatitis C quantitative levels ordered as well. All of his toxicology screen was negative. There is trace urinary occult blood and +1 ketones, but no evidence for obvious urinary tract infection. Nitrate and leukocyte esterase are negative. I made the following recommendations. I believe a colonoscopy is prudent for his rectal bleeding and the patient is agreeable to stay tomorrow with bowel prep today. For his upper GI symptoms that involve some nausea without vomiting on the weekend, I believe it is prudent to assess for ulcers, inflammation as well as any evidence of portal hypertension. Interestingly, the patient's synthetic function with albumin, INR, normal LFTs, normal platelet and white count with normal imaging would suggest that there is no obvious cirrhosis identified. We will plan for upper endoscopy and colonoscopy tomorrow. We did speak today regarding potential new treatments of hepatitis C that may be better tolerated. This is predicated on abstaining from alcohol prior to any commencement of therapy as well as the genotype identified. The patient did obviously express some concerns about abstaining from the use of drinking beer; however, I did my best to describe to the patient that at this point it appears that he has been fortunate that he does not have more overt signs of chronic liver disease or possibly cirrhosis based on findings described above. However, the impact of both alcohol and potentially chronic active hepatitis C infection can have long-term consequences and this needs should be strongly considered. It may be reasonable for the patient to watch for DTs and the patient is on lorazepam IV on a p.r.n. protocol. His other medications during this hospitalization include thiamine, multivitamins, folic acid, metoprolol, lisinopril, hydrochlorothiazide and amlodipine, all of which are outpatient medications. All questions answered. Further recommendations to follow. Thank you for allowing me to participate in this patient's care.
[2017-12-05] MEDS: LAVAGE SOLUTION 4000ML PO SCH ×11 (18:06→23:55)
[2017-12-05] MEDS ORDERED: LAVAGE SOLUTION 4000ML PO PRN (22:00)
[2017-12-06] MEDS: LAVAGE SOLUTION 4000ML PO SCH ×5 (00:02→00:26)
[2017-12-06 00:17] LABS: HEMATOCRIT 38.8 % (42-52); HEMOGLOBIN 14.1 g/dL (14.0-18.0)
[2017-12-06] MEDS: SODIUM CHLORIDE 0.9% 1000ML 1,000 ML IV SCH ×2 (03:34→15:26)
[2017-12-06 04:05] VITALS: BP 148/82; PULSE 81; TEMP 36.9; O2SAT 96
[2017-12-06 07:09] VITALS: BP 144/69; PULSE 66; TEMP 37; O2SAT 97
[2017-12-06] MEDS: THIAMINE HCL 100 MG TAB PO SCH (07:41)
[2017-12-06] MEDS: MULTIVITAMIN TAB PO SCH (07:41)
[2017-12-06] MEDS: AMLODIPINE BESYLATE 5 MG TAB PO SCH (07:41)
[2017-12-06] MEDS: METOPROLOL SUCC 50MG EXT REL TAB PO SCH (07:41)
[2017-12-06] MEDS: LISINOPRIL 40 MG TAB PO SCH (07:42)
[2017-12-06] MEDS: HYDROCHLOROTHIAZIDE 25 MG TAB PO SCH (07:44)
--- NOTE | 2017-12-06 07:49 | Family Medicine Progress Note ---
Progress Note Date of Service Dec 06, 2017. Subjective Pt evaluation today including: conversation w/ patient, physical exam, chart review, conversation w/ instructional systems design consultant, review of inpatient medication list Pain: none PO Intake: NPO Voiding: no voiding problems Patient was seen at the bedside and his only complaint was fatigue He is going for EGD and colonoscopy later today. He had a bowel prep last night and did have bright red blood in his stool. Repeat Hgb was stable. Constitutional: + fatigue, No fever, No chills Respiratory: No cough, No sputum, No shortness of breath Cardiovascular: No chest pain, No orthopnea Abdomen: + diarrhea, + GI bleeding, No pain, No nausea, No vomiting Male : No dysuria, No urinary frequency Medications Current Inpatient Medications Medications (Trade) Dose Ordered Sig/Anais Route Start Time Stop Time Status Last Admin Dose Admin Ioversol (Optiray 320) 100 ml UD PRN IV 12/04/17 17:30 12/08/17 17:29 Sodium Chloride 1,000 ml @ 100 mls/hr Q10H IV 12/05/17 08:40 01/04/18 08:39 12/06/17 03:34 100 MLS/HR Acetaminophen (Tylenol Tab) 650 mg Q4H PRN PO 12/04/17 20:45 01/03/18 20:44 Al Hydrox/Mg Hydrox/Simethicone (Maalox Max Susp) 15 ml Q4H PRN PO 12/04/17 20:45 01/03/18 20:44 Magnesium Hydroxide (Milk Of Magnesia Susp) 30 ml Q12H PRN PO 12/04/17 20:45 01/03/18 20:44 Ondansetron HCl (Zofran Inj) 4 mg Q6H PRN IV 12/04/17 20:45 01/03/18 20:44 Nitroglycerin (Nitrostat Tab) 0.4 mg UD PRN SL 12/04/17 20:45 01/03/18 20:44 Polyethylene (Miralax Powder Packet) 17 gm DAILY PRN PO 12/04/17 20:45 01/03/18 20:44 Thiamine HCl (Vitamin B-1 Tab) 100 mg QAM PO 12/05/17 09:00 01/04/18 08:59 12/05/17 08:25 100 MG Multivitamins (Multivitamin Tab) 1 tab QAM PO 12/05/17 09:00 01/04/18 08:59 12/05/17 08:25 1 TAB Folic Acid (Folvite Tab) 1 mg QAM PO 12/05/17 09:00 01/04/18 08:59 12/05/17 08:25 1 MG Lorazepam (Ativan Inj) 1 mg ONE PRN IV 12/04/17 20:45 Miscellaneous (Iv Fluids Completed) 1 ea PRN PRN N/A 12/05/17 02:30 12/05/18 02:29 Metoprolol Succinate (Toprol Xl Tab) 100 mg QAM PO 12/05/17 09:00 01/04/18 08:59 12/05/17 08:27 100 MG Lisinopril (Zestril Tab) 40 mg QAM PO 12/05/17 09:00 01/04/18 08:59 12/05/17 08:27 40 MG Hydrochlorothiazide (Hydrochlorothiazide Tab) 12.5 mg QAM PO 12/05/17 09:00 01/04/18 08:59 12/05/17 08:27 12.5 MG Amlodipine Besylate (Norvasc Tab) 10 mg QAM PO 12/05/17 09:00 01/04/18 08:59 12/05/17 08:27 10 MG Objective Vital Signs Date Time Temp Pulse Resp B/P (MAP) Pulse Ox O2 Delivery O2 Flow Rate FiO2 12/06/17 07:09 37.0 66 18 144/69 (94) 97 12/06/17 04:05 36.9 81 16 148/82 (104) 96 Room Air 12/06/17 04:00 Room Air 12/06/17 00:00 Room Air 12/05/17 23:29 36.8 67 18 161/84 (109) 95 Room Air 12/05/17 20:33 74 172/77 (108) 12/05/17 20:00 Room Air 12/05/17 19:06 36.5 69 18 171/91 (117) 98 Room Air 12/05/17 16:00 Room Air 12/05/17 15:03 36.7 70 18 152/76 (101) 97 Room Air 12/05/17 12:00 Room Air 2/6/18 11:47 36.9 76 18 149/68 (95) 95 12/05/17 08:00 Room Air Physical Exam General Appearance: WD/WN, no apparent distress ENT: hearing grossly normal, pharynx normal Neck: no JVD, no carotid bruits, trachea midline Respiratory/Chest: lungs clear, no respiratory distress, no accessory muscle use Cardiovascular: regular rate, rhythm, no edema, no murmur Abdomen: normal bowel sounds, non tender, soft Extremities: non-tender, no pedal edema, no calf tenderness, normal capillary refill Neurologic/Psychiatric: alert, normal mood/affect, oriented x 3 Skin: normal color, warm/dry, no rash Laboratory Results Results Past 24 Hours Test 12/05/17 08:23 12/05/17 23:51 12/06/17 04:44 Range/Units White Blood Count 6.72 4.8-10.8 K/uL Red Blood Count 4.44 4.7-6.1 M/uL Hemoglobin 13.7 14.1 14.0-18.0 g/dL Hematocrit 38.8 38.8 42-52 % Mean Corpuscular Volume 87.4 80-100 fL Mean Corpuscular Hemoglobin 30.9 25-34 pg Mean Corpuscular Hemoglobin Concent 35.3 32-36 g/dl RDW Standard Deviation 42.6 36.4-46.3 fL RDW Coefficient of Variation 13.3 11.5-14.5 % Platelet Count 187 130-400 K/uL Mean Platelet Volume 9.1 7.4-10.4 fL Sodium Level 134 136-145 mmol/L Potassium Level 3.6 3.5-5.1 mmol/L Chloride Level 103 98-107 mmol/L Carbon Dioxide Level 24 21-32 mmol/L Anion Gap 7.0 3-11 mmol/L Blood Urea Nitrogen 6 7-18 mg/dl Creatinine 0.66 0.60-1.40 mg/dl Est Creatinine Clear Calc Drug Dose 127.4 ml/min Estimated GFR () 118.4 Estimated GFR (Non- 102.2 BUN/Creatinine Ratio 8.8 10-20 Random Glucose 112 70-99 mg/dl Calcium Level 8.2 8.5-10.1 mg/dl Assessment and Plan 62 year old male with hepatitis C, chronic alcohol use, diverticulosis and, hemorrhoids, HTN, HLD, who presents to the ED with 6 episodes of BRB per rectum GI bleed - ? secondary to bleeding internal haemorhoids vs intestinal mass - Last colonoscopy in 2013 showed large internal haemmorhoids which received sclerotherapy and 2 rectal polyps which were removed - No abdominal pain or nausea therefore unlikely upper GI bleed, suspect secondary to internal haemmorhoids vs large intestine polyp/mass - GI consulted - going for upper endoscopy and colonoscopy today - Vitals stable and Hb 15.5 on admission and repeat 14.1 - Trend H/H - Hold aspirin for now - NPO w/ bowel prep Hepatitis C - Hep C quant ordered Bladder distension - as noted on CT - Patient denies urinary symptoms - Bladder scan with straight cath if unable to void Electrolyte abnormalities - Na+ 134, K+ 3.6 - likely secondary to vomiting/dehydration - IVF NSS + KCl 20mEQ @ 100cc/hr - Trend BMP Alcohol use - AWSS protocol initiated HTN - Continue home meds: metoprolol 100mg daily, lisinopril 40mg daily, amlodipine 10mg daily, HCTz 12.5mg daily VTE ppx - SCDs - Chemical ppx C/I due to GI bleed FULL code Continued [facility] stay due to: other Discharge planning: home
[2017-12-06 08:34] LABS: HEMATOCRIT 40.9 % (42-52); HEMOGLOBIN 14.6 g/dL (14.0-18.0); MEAN CELL VOLUME 87.4 fL (80-100); MEAN CORPUSCULAR HEMOGLOBIN 31.2 pg (25-34); MEAN CORPUSCULAR HGB CONC 35.7 g/dl (32-36); MEAN PLATELET VOLUME 9.8 fL (7.4-10.4); PLATELET COUNT 232 K/uL (130-400); RED CELL DISTRIBUTION WIDTH CV 13.1 % (11.5-14.5); RED CELL DISTRIBUTION WIDTH SD 41.9 fL (36.4-46.3); WHITE BLOOD COUNT 8.17 K/uL (4.8-10.8)
[2017-12-06 09:01] LABS: CALCIUM 8.7 mg/dl (8.5-10.1); CREATININE 0.68 mg/dl (0.60-1.40); POTASSIUM 3.4 mmol/L (3.5-5.1)
--- NOTE | 2017-12-06 10:18 | History & Physical Bridge Note ---
H&P Re-Evaluation Bridge Note: I have examined the patient, reviewed the History & Physical and in the interval since the performance of the History & Physical I have noted the following changes of clinical significance: No changes noted
[2017-12-06 11:41] VITALS: BP 142/74; PULSE 74; TEMP 36.9; O2SAT 96
[2017-12-06] MEDS ORDERED: FENTANYL CITRATE INJ 50 MCG/1 ML 2 ML VIAL ONE (12:25)
[2017-12-06] MEDS ORDERED: LIDOCAINE HCL 2% 2 ML VIAL (20MG/ML) ONE (12:25)
[2017-12-06] MEDS ORDERED: PROPOFOL IV EMULSION 10 MG/ML 20 ML VIAL IV ONE (12:25)
[2017-12-06] MEDS ORDERED: PHENYLEPHRINE 100MCG/ML 5ML SYR ONE (13:27)
--- NOTE | 2017-12-06 13:27 | GI REPORT ---
Procedure Date: 12/06/2017 12:23 PM Procedure: Upper GI endoscopy Indications: Epigastric abdominal pain, Nausea Medicines: Propofol per Anesthesia Complications: No immediate complications. Estimated blood loss: Minimal. Estimated Blood Loss: Estimated blood loss was minimal. Procedure: Pre-Anesthesia Assessment: - Prior to the procedure, a History and Physical was performed, and patient medications and allergies were reviewed. The patient's tolerance of previous anesthesia was also reviewed. The risks and benefits of the procedure and the sedation options and risks were discussed with the patient. All questions were answered, and informed consent was obtained. Prior Anticoagulants: The patient has taken no previous anticoagulant or antiplatelet agents. ASA Grade Assessment: II - A patient with mild systemic disease. After reviewing the risks and benefits, the patient was deemed in satisfactory condition to undergo the procedure. After obtaining informed consent, the endoscope was passed under direct vision. Throughout the procedure, the patient's blood pressure, pulse, and oxygen saturations were monitored continuously. The scope was introduced through the mouth, and advanced to the fourth part of duodenum. The upper GI endoscopy was accomplished without difficulty. The patient tolerated the procedure well. Findings: The examined esophagus was normal. A small hiatal hernia was found. The proximal extent of the gastric folds (end of tubular esophagus) was 42 cm from the incisors. The hiatal narrowing was 45 cm from the incisors. The Z-line was 42 cm from the incisors. Patchy mildly erythematous mucosa without bleeding was found in the gastric body and in the gastric antrum. Biopsies were taken with a cold forceps for histology. Estimated blood loss was minimal. Verification of patient identification for the specimen was done by the physician and nuclear engineering technician using the patient's name and medical record number. The examined duodenum was normal. Retained gastric contents are not identified on this exam. Impression: - Normal esophagus. - Small hiatal hernia. - Erythematous mucosa in the gastric body and antrum. Biopsied. - Normal examined duodenum. Recommendation: - Discharge patient to home (ambulatory). - Resume regular diet. - Continue present medications. - Await pathology results. - [facility]. - Perform a colonoscopy today. MD Lico Anaya MD 12/06/2017 1:26:52 PM This report has been signed electronically. Note Initiated On: 12/06/2017 12:23 PM I attest to the content of the Intraoperative Record and orders documented therein, exceptions below
--- NOTE | 2017-12-06 13:33 | GI REPORT ---
Procedure Date: 12/06/2017 12:22 PM Procedure: Colonoscopy Indications: Hematochezia Medicines: Propofol per Anesthesia Complications: No immediate complications. Estimated blood loss: Minimal. Estimated Blood Loss: Estimated blood loss was minimal. Procedure: Pre-Anesthesia Assessment: - Prior to the procedure, a History and Physical was performed, and patient medications and allergies were reviewed. The patient's tolerance of previous anesthesia was also reviewed. The risks and benefits of the procedure and the sedation options and risks were discussed with the patient. All questions were answered, and informed consent was obtained. Prior Anticoagulants: The patient has taken no previous anticoagulant or antiplatelet agents. ASA Grade Assessment: II - A patient with mild systemic disease. After reviewing the risks and benefits, the patient was deemed in satisfactory condition to undergo the procedure. After I obtained informed consent, the scope was passed under direct vision. Throughout the procedure, the patient's blood pressure, pulse, and oxygen saturations were monitored continuously. The scope was introduced through the anus and advanced to the terminal ileum, with identification of the appendiceal orifice and IC valve. The colonoscopy was performed without difficulty. The patient tolerated the procedure well. The quality of the bowel preparation was good. Findings: The perianal and digital rectal examinations were normal. Pertinent negatives include normal sphincter tone, no palpable rectal lesions and no anal lesion or abnormality was detected. A 25 mm polyp was found in the ileocecal valve. The polyp was sessile. Biopsies were taken with a cold forceps for histology from two edges of the sessile polyp. Estimated blood loss was minimal. Verification of patient identification for the specimen was done by the physician and geology technician using the patient's name and medical record number. The terminal ileum appeared normal. Many small-mouthed diverticula were found in the sigmoid colon. Two sessile polyps were found in the rectum. The polyps were 1 to 3 mm in size. These polyps were removed with a cold biopsy forceps. Resection and retrieval were complete. Estimated blood loss was minimal. Verification of patient identification for the specimen was done by the physician and geology technician using the patient's name and medical record number. Non-bleeding internal hemorrhoids were found during retroflexion. The hemorrhoids were moderate and Grade II (internal hemorrhoids that prolapse but reduce spontaneously). The exam was otherwise without abnormality. Impression: - One 25 mm polyp at the ileocecal valve. Biopsied. - The examined portion of the ileum was normal. - Diverticulosis in the sigmoid colon. - Two 1 to 3 mm polyps in the rectum, removed with a cold biopsy forceps. Resected and retrieved. - Non-bleeding internal hemorrhoids. - The examination was otherwise normal. Recommendation: - [facility]. - 1) will refer to colorectal surgery for hemorrhoids (previous sclerotherapy at [facility]) 2) large polyp at IC valve involving at least 1/3 or perimeter. Unable to determine if it enters the lumen of TI. This may need surgical resection depending on Bx. MD Lico Anaya MD 12/06/2017 1:33:25 PM This report has been signed electronically. Note Initiated On: 12/06/2017 12:22 PM I attest to the content of the Intraoperative Record and orders documented therein, exceptions below
--- NOTE | 2017-12-06 14:23 | Anesthesiology Progress Note ---
Anesthesia Post Op Note Date & Time Dec 06, 2017 at 14:23 Vital Signs Pain Intensity: 0.0 Vital Signs Past 12 Hours Date Time Temp Pulse Resp B/P (MAP) Pulse Ox O2 Delivery O2 Flow Rate FiO2 12/06/17 13:52 68 18 154/83 (106) 96 Room Air 12/06/17 13:37 71 18 143/76 (98) 97 Room Air 12/06/17 13:22 72 18 113/68 (83) 97 Room Air 12/06/17 12:09 36.5 87 20 181/95 (123) 96 Room Air 12/06/17 12:00 Room Air 12/06/17 11:41 36.9 74 18 142/74 (96) 96 12/06/17 08:00 Room Air 12/06/17 07:09 37.0 66 18 144/69 (94) 97 12/06/17 04:05 36.9 81 16 148/82 (104) 96 Room Air 12/06/17 04:00 Room Air Notes Mental Status: alert / awake / arousable, participated in evaluation Nausea / Vomiting: adequately controlled Pain: adequately controlled Airway Patency, RR, SpO2: stable & adequate BP & HR: stable & adequate Hydration State: stable & adequate Anesthetic Complications: no major complications apparent
[2017-12-06] MEDS ORDERED: HYDR25TA5 PO (14:24)
[2017-12-06] MEDS ORDERED: FLV1 PO (14:24)
[2017-12-06] MEDS ORDERED: TPRSR50 PO (14:24)
[2017-12-06] MEDS ORDERED: NRV5 PO (14:24)
[2017-12-06] MEDS ORDERED: THM100 PO (14:24)
[2017-12-06] MEDS ORDERED: LSN40 PO (14:24)
--- NOTE | 2017-12-06 14:29 | Discharge Instructions ---
Discharge Instructions Date of Service Dec 06, 2017. Admission Reason for Admission: Lower Gi Bleed Discharge Discharge Diagnosis / Problem: Intestinal Polyp amd Internal haemmorhoids Discharge Goals Goal(s): Decrease discomfort, Improve disease control, Therapeutic intervention , Prevent Disease Progression Activity Recommendations Activity Limitations: per Instructions/Follow-up section . Instructions / Follow-Up Instructions / Follow-Up You came to the hospital due to bleeding per rectum You had a colonoscopy which showed a 25mm polyp, as well as two smaller polyps near the rectum and internal haemmorhoids. A biopsy was taken from the polyp. You will need to follow up with Dr. Munoz in his office for your biopsy results and for management of your internal haemmorhoids. If you continue to have a lot of bleeding then please come back to the hospital. Current Hospital Diet Patient's current hospital diet: Regular Diet Discharge Diet Recommended Diet: Regular Diet Procedures Procedures Performed: EGD with biopsy; colonoscopy with biopsy and polypectomy Pending Studies Studies pending at discharge: yes List of pending studies: Polyp biopsy Medical Emergencies . Who to Call and When: Medical Emergencies: If at any time you feel your situation is an emergency, please call 911 immediately. . Non-Emergent Contact Non-Emergency issues call your: Primary Care Provider, Financial Legal Assistant . . "Provider Documentation" section prepared by Keshav Freitas. . VTE Core Measure Inpt VTE Proph given/why not?: SCD's
[2017-12-06] MEDS ORDERED: RANI150T3 PO (14:31)
--- NOTE | 2017-12-06 14:40 | Discharge Summary ---
Discharge Summary Date of Service Dec 06, 2017. Discharge Summary Admission Date: Dec 04, 2017 at 21:32 Discharge Date: Dec 06, 2017 Discharge Disposition: Home Principal Diagnosis: Intestinal polyp and internal haemmorhoid Immunizations: Have You Had Influenza Vaccine: No History of Tetanus Vaccine?: No History of Pneumococcal: No History of Hepatitis B Vaccine: No Procedures: Colonoscopy EGD Consultations: Gastroenterology Medication Reconciliation New Medications: Ranitidine Hcl (Zantac) 150 Mg Tab 150 MG PO BID for 14 Days, #28 TAB Amlodipine Besylate (Amlodipine Besylate) 5 Mg Tab 10 MG PO QAM for 30 Days, #60 TAB Folic Acid (Folic Acid) 1 Mg Tab 1 MG PO QAM for 30 Days, #30 TAB Hydrochlorothiazide (Hydrochlorothiazide) 25 Mg Tab 12.5 MG PO QAM for 30 Days, #15 TAB Lisinopril (Lisinopril) 40 Mg Tab 40 MG PO QAM for 30 Days, #30 TAB Metoprolol Succinate (Metoprolol Succinate ER) 50 Mg Tabcr 100 MG PO QAM for 30 Days Thiamine HCl (Vitamin B-1) 100 Mg Tab 100 MG PO QAM for 30 Days, #30 TAB Discharge Exam Patient with some bleeding in his stool last night when going for bowel prep. Feeling well and without any more bleeding after EGD and colonoscopy Review of Systems: Constitutional: No fever, No chills, No sweats Respiratory: No cough, No sputum, No shortness of breath Cardiovascular: No chest pain, No edema, No palpitations Abdomen: + GI bleeding, No pain, No nausea, No vomiting, No diarrhea Genitourinary - Male: No hematuria, No dysuria, No urinary frequency Physical Exam: General Appearance: WD/WN, no apparent distress Neck: supple, no JVD, no carotid bruits, trachea midline Respiratory/Chest: lungs clear, no respiratory distress, no accessory muscle use Cardiovascular: regular rate, rhythm, no murmur, normal peripheral pulses Abdomen / GI: normal bowel sounds, non tender, soft Extremities: normal inspection, no calf tenderness, non-tender Neurologic/Psychiatric: alert, normal mood/affect, oriented x 3 Skin: normal color, warm/dry, no rash Hospital Course 62 year old male with hepatitis C, chronic alcohol use, diverticulosis and, hemorrhoids, HTN, HLD, who presents to the ED with 6 episodes of BRB per rectum GI bleed Colonoscopy results below - One 25 mm polyp at the ileocecal valve. Biopsied. - The examined portion of the ileum was normal. - Diverticulosis in the sigmoid colon. - Two 1 to 3 mm polyps in the rectum, removed with a cold biopsy forceps. Resected and retrieved. - Non-bleeding internal hemorrhoids. EGD results below - Normal esophagus. - Small hiatal hernia. - Erythematous mucosa in the gastric body and antrum. Biopsied. - Will follow up with Dr. Munoz next week to discuss biopsy results and referral to colorectal surgeon for internal haemorrhoids - will send patient home with zantac 150mg bid for two weeks - Aspirin was held while in hospital, can continue upon discharge - H and H remained stable while in hospital, discharge was 14.1 Hepatitis C - Hep C quant ordered and pending at discharge. To be followed up on discharge Bladder distension - as noted on CT - Patient denies urinary symptoms Electrolyte abnormalities - resolved. - likely secondary to vomiting/dehydration Alcohol use - Kept on [facility] protocol HTN - Continue home meds: metoprolol 100mg daily, lisinopril 40mg daily, amlodipine 10mg daily, HCTz 12.5mg daily Total Time Spent: Greater than 30 minutes This includes examination of the patient, discharge planning, medication reconciliation, and communication with other providers. Discharge Instructions Please refer to the electronic Patient Visit Report (Discharge Instructions) for additional information. Additional Copies To Cornel Galicia D.O.; Lico Munoz M.D. Reviewed: Pt Seen/Exam by Me History had some fresh blood in stool this am. Constitutional: denies: fever Respiratory: negative: short of breath Cardiovascular: denies chest pain General Appearance: no apparent distress Respiratory: lungs clear, no respiratory distress Cardiovascular: regular rate, rhythm Neurologic/Psychiatric: alert, oriented x 3 Skin Characteristics: warm/dry Assessment/Plan Resident Physician Supervision Note: I independently interviewed and examined the patient and verified the kennedy history and physical, reviewed labs and image studies, discussed the case with the resident Dr. Freitas and agree with the findings and care plan. Time spent in discharge 35 min
--- NOTE | 2017-12-06 15:23 | GASTROENTEROLOGY PROGRESS NOTE ---
DATE: 12/06/2017 PROGRESS NOTE UPDATE The patient underwent upper endoscopy and colonoscopy today. Upper endoscopy revealed a small hiatal hernia and mild antral gastritis, which was biopsied. There were no esophageal or gastric varices and evidence for significant portal hypertension was not identified. Small bowel was normal. Colonoscopy revealed a left-sided diverticulosis without active bleeding, moderate internal hemorrhoids that were nonbleeding, a small rectal polyp that was removed by biopsy and lastly, a sizable 25-30 mm sessile polyp involving the ileocecal valve region. This underwent biopsying from the edges. I spoke with the patient in the recovery area and reviewed these results with him. I plan to have the patient see our colorectal surgeon hopefully next Monday to address both the hemorrhoids and any other approaches to hemorrhoidal treatment including banding. The patient in 2013 had received 1 endoscopic therapy with sodium tetradecyl sclerosant. Regarding the sizable sessile polyp involving the ileocecal valve, this may be difficult to remove endoscopically as it would be difficult to sure that there was no retained polypoid tissue at the terminal ileal orifice. Will look to see the colorectal surgeon's impression and whether or not primary resection of this area versus serial endoscopy with endoscopic mucosal resection is reasonable. Close surveillance will be necessary. Lastly, regarding the patient's hepatitis C, his quantitative levels are pending at this time and these will be assessed and we will discuss these when the patient is return visit in the office. The patient has never been treated for hepatitis C in the past and has known of the diagnose in 2001. He did report liver biopsy at that time. The genotype is also not known. MTDD
[2017-12-06 15:32] VITALS: BP 138/78; PULSE 69; TEMP 36.7; O2SAT 97
[2017-12-06 16:00] VITALS: O2SAT 95
[2017-12-06 16:51] VITALS: BP 138/78; PULSE 69; TEMP 36.7; O2SAT 97
[2017-12-07 12:34] LABS: HEPATITIS C VIRAL RNA(LOG) PCR 7.07 LOG IU/ML (<1.18)
== END 2017-12-06 17:59 | disposition home or self-care (01) ==
LOC: C.EDB 17:00 → C.2T 21:32 → ENRESERV 21:44
PROVIDERS: ADMIT Hospitalist; ATTEND Family Medicine
DX: K92.2 Gastrointestinal hemorrhage, unspecified (principal); B18.2 Chronic viral hepatitis C; D12.0 Benign neoplasm of cecum; D12.8 Benign neoplasm of rectum; K57.30 Diverticulosis of large intestine without perforation or abscess without bleeding; K64.8 Other hemorrhoids; K44.9 Diaphragmatic hernia without obstruction or gangrene; I10 Essential (primary) hypertension; F17.200 Nicotine dependence, unspecified, uncomplicated; F10.10 Alcohol abuse, uncomplicated; E78.5 Hyperlipidemia, unspecified; Z80.42 Family history of malignant neoplasm of prostate; Z83.3 Family history of diabetes mellitus; Z82.49 Family history of ischemic heart disease and other diseases of the circulatory system; Z83.6 Family history of other diseases of the respiratory system

== ENCOUNTER 2018-01-24 12:07 | Day surgery (SDC) | payer OTHER ==
[2018-01-08 12:38] VITALS: Ht 172.7 cm; Wt 95.9 kg
[~2018-01-24] VITALS: Ht 172.7 cm; Wt 95.9 kg
[~2018-01-24 12:07] MED LIST: AMLO10TA2 PO; ASPI81TA28 PO; HYDR12.56 PO; LISI40TA PO; METO100T44 PO; OMEG10007 PO
[2018-01-24] MEDS ORDERED: PROPOFOL IV EMULSION 10 MG/ML 20 ML VIAL IV ONE (12:42)
[2018-01-24] MEDS ORDERED: GLYCOPYRROLATE INJ 0.2 MG/ML VIAL ONE (12:42)
[2018-01-24] MEDS ORDERED: NEOSTIGMINE METHYLSULFATE 5 MG/5 ML SYR ONE (12:42)
[2018-01-24] MEDS ORDERED: LIDOCAINE HCL 2% 2 ML VIAL (20MG/ML) ONE (12:42)
[2018-01-24] MEDS ORDERED: MIDAZOLAM HCL 1 MG/ML 2ML VIAL ONE (12:42)
[2018-01-24] MEDS ORDERED: FENTANYL CITRATE INJ 50 MCG/1 ML 2 ML VIAL ONE (12:42)
[2018-01-24] MEDS ORDERED: ONDANSETRON INJ 2 MG/ML 2 ML VIAL ONE (12:42)
[2018-01-24] MEDS ORDERED: DEXAMETHASONE SOD INJ 4 MG/ML VIAL ONE (12:42)
[2018-01-24] MEDS ORDERED: EpHEDrine SULFATE INJ 50 MG/ML AMP IV PRN (13:00)
[2018-01-24] MEDS ORDERED: ONDANSETRON INJ 2 MG/ML 2 ML VIAL IV PRN (13:00)
[2018-01-24] MEDS ORDERED: ATROPINE SULFATE 0.1 MG/ML 5ML SYR IV PRN (13:00)
[2018-01-24] MEDS ORDERED: METHYLENE BLUE 0.5% 10 ML VIAL ONE (13:20)
[2018-01-24] MEDS ORDERED: SODIUM CHLORIDE 0.9% 500ML 500 ML IV ONE (13:38)
--- NOTE | 2018-01-24 13:40 | Endo History and Physical ---
History & Physical Date of Service: Jan 24, 2018. Chief Complaint: Polyps Referring Physician: Dr. Aranza Monterroso History of Present Illness colon polyp- EMR required Past Surgical History Hx Cardiac Surgery: No Hx Internal Defibrillator: No Hx Pacemaker: No Hx Abdominal Surgery: No Hx of Implantable Prosthesis: No Hx Post-Op Nausea and Vomiting: No Hx Cancer Surgery: No Hx Thoracic Surgery: No Hx Orthopedic: No Hx Urinary Tract Surgery: No Family History None Social History Smoking Status: Current Every Day Smoker Hx Substance Use: No Hx Alcohol Use: Yes (NOW 3 BEERS/DAY (USUALLY 6 PACK/DAY)) Allergies Coded Allergies: No Known Allergies (Verified , 01/24/18) Current Medications Reported Home Medications Medications Dose Route/Sig Max Daily Dose Days Date Category [place]-3 (Fish Oil) 1 Ea Cap 1 Cap PO QAM 01/08/18 Reported Aspirin Ec (Aspirin) 81 Mg Tab 81 Mg PO QAM 01/08/18 Reported Toprol-Xl (Metoprolol Succinate) 100 Mg Tabcr 100 Mg PO QAM 01/08/18 Reported Zestril (Lisinopril) 40 Mg Tab 40 Mg PO QAM 01/08/18 Reported Hctz (Hydrochlorothiazide) 12.5 Mg Cap 12.5 Mg PO QAM 01/08/18 Reported Norvasc (Amlodipine Besylate) 10 Mg Tab 10 Mg PO QAM 01/08/18 Reported Vital Signs Weight (Kilograms): 95.91 Height (Feet): 5 Height (Inches): 8 Date Time Temp Pulse Resp B/P (MAP) Pulse Ox O2 Delivery O2 Flow Rate FiO2 01/24/18 13:02 36.5 70 16 158/85 (109) 99 Room Air Physical Exam General Appearance: WD/WN, no apparent distress Respiratory/Chest: Auscultation: breath sounds normal Cardiovascular: Heart Auscultation: RRR Abdomen: Bowel Sounds: normal Inspection & Palpation: soft, non-distended, no tenderness, guarding & rebound Assessment and Plan colonoscopy with EMR risks benefits alternatives d/w pt. Risks of bleeding/infection and perforation of approximately 1 in 500 pt agrees to proceed Marlee
--- NOTE | 2018-01-24 15:40 | [facility] Post Operative Brief Note ---
Immediate Operative Summary Operative Date Jan 24, 2018. Pre-Operative Diagnosis Polyp Post-Operative Diagnosis EMR for Polyp Procedure(s) Performed Colonoscopy; Endomucosal Resection with clip placement Surgeon Dr. Munoz Office Clerk Routine Surgeon(s) none Estimated Blood Loss 0cc Findings Consistent with Post-Op Diagnosis Specimens All specimens handled by Endo Staff Anesthesia Type General Disposition Disposition: Recovery Room / PACU
--- NOTE | 2018-01-24 15:41 | Discharge Instructions ---
Endoscopy Patient Instructions Date / Procedure(s) Performed Jan 24, 2018. Colonoscopy Allergy Information Coded Allergies: No Known Allergies (Verified , 01/24/18) Discharge Date / Findings Jan 24, 2018. POLYP- EMR Medication Instructions Stopped Medication(s): see med rec Restart Stopped Medication(s): Reported Home Medications Medications Dose Route/Sig Max Daily Dose Days Date Category [place]-3 (Fish Oil) 1 Ea Cap 1 Cap PO QAM 01/08/18 Reported Aspirin Ec (Aspirin) 81 Mg Tab 81 Mg PO QAM 01/08/18 Reported Toprol-Xl (Metoprolol Succinate) 100 Mg Tabcr 100 Mg PO QAM 01/08/18 Reported Zestril (Lisinopril) 40 Mg Tab 40 Mg PO QAM 01/08/18 Reported Hctz (Hydrochlorothiazide) 12.5 Mg Cap 12.5 Mg PO QAM 01/08/18 Reported Norvasc (Amlodipine Besylate) 10 Mg Tab 10 Mg PO QAM 01/08/18 Reported Reported Home Medications Medications Dose Route/Sig Max Daily Dose Days Date Category [place]-3 (Fish Oil) 1 Ea Cap 1 Cap PO QAM 01/08/18 Reported Aspirin Ec (Aspirin) 81 Mg Tab 81 Mg PO QAM 01/08/18 Reported Toprol-Xl (Metoprolol Succinate) 100 Mg Tabcr 100 Mg PO QAM 01/08/18 Reported Zestril (Lisinopril) 40 Mg Tab 40 Mg PO QAM 01/08/18 Reported Hctz (Hydrochlorothiazide) 12.5 Mg Cap 12.5 Mg PO QAM 01/08/18 Reported Norvasc (Amlodipine Besylate) 10 Mg Tab 10 Mg PO QAM 01/08/18 Reported Provider Instructions Activity Restrictions - No exercising or heavy lifting for 24 hours. - Do not drink alcohol the day of the procedure. - Do not drive a car or operate machinery until the day after the procedure. - Do not make any important decisions or sign important papers in 24 hours after the procedure. Following Day: - Return to full activity which may include returning to work/school. Diet Start your diet with liquids and light foods (jello, soup, juice, toast). Then eat your usual diet if not nauseated. Treatment For Common After Affects For mild abdominal pain, bloating, or excessive gas: - Rest - Eat lightly - Lie on right side Follow-Up Information Follow-up with Dr. Aranza Monterroso as scheduled Anesthesia Information What You Should Know You have had a procedure that required some medicine to reduce anxiety and discomfort. This treatment is called moderate sedation. After receiving the treatment, you may be sleepy, but you will be able to breathe on your own. The effects of the treatment may last for several hours. Follow these instructions along with Activity/Diet recommendations noted above: * Do NOT do anything where dizziness or clumsiness would be dangerous. * Rest quietly at home today, then you can be up and about tomorrow. * Have a responsible person stay with you the rest of today. * You may have had an I.V. today. If so, you may take the dressing off later today. Recommendations Call your doctor if: * Trouble breathing * Continuous vomiting for more than 24 hours * Temperature above 101 degrees * Severe abdominal pain or bloating * Pain not relieved by pain medicine ordered * There is increased drainage or redness from any incision * A large amount of rectal bleeding greater than 2-3 tablespoons. (If you had a polyp/s removed or have hemorrhoids, a small amount of blood - from the rectum is to be expected.) * You have any unanswered questions or concerns. IN THE EVENT OF A SERIOUS EMERGENCY, GO TO THE NEAREST EMERGENCY ROOM Your discharge instructions were prepared by provider Lico Munoz. Patient Instructions Signature Page Toni Montague Patient (or Guardian) Signature/Date: I have read and understand the instructions given to me by my caregivers. Caregiver/RN/Doctor Signature/Date: The above-named patient and/or guardian has received patient instructions on this date. + Original Patient Signature Page (only) stays with chart. Please make copy for patient.
--- NOTE | 2018-01-24 16:04 | GI REPORT ---
Procedure Date: 01/24/2018 1:43 PM Procedure: Colonoscopy Indications: Therapeutic procedure for colon polyps Medicines: General Anesthesia Complications: No immediate complications. Estimated blood loss: None. Estimated Blood Loss: Estimated blood loss: none. Procedure: Pre-Anesthesia Assessment: - Prior to the procedure, a History and Physical was performed, and patient medications and allergies were reviewed. The patient's tolerance of previous anesthesia was also reviewed. The risks and benefits of the procedure and the sedation options and risks were discussed with the patient. All questions were answered, and informed consent was obtained. Prior Anticoagulants: The patient has taken no previous anticoagulant or antiplatelet agents. ASA Grade Assessment: III - A patient with severe systemic disease. After reviewing the risks and benefits, the patient was deemed in satisfactory condition to undergo the procedure. After I obtained informed consent, the scope was passed under direct vision. Throughout the procedure, the patient's blood pressure, pulse, and oxygen saturations were monitored continuously. The scope was introduced through the anus and advanced to the terminal ileum, with identification of the appendiceal orifice and IC valve. The colonoscopy was unusually difficult due to a tortuous colon and the patient's body habitus. The patient tolerated the procedure well. The quality of the bowel preparation was fair. Findings: Many small-mouthed diverticula were found in the sigmoid colon. A 8 mm polyp was found in the proximal ascending colon. The polyp was sessile. The polyp was removed with a hot snare. Resection and retrieval were complete. Estimated blood loss: none. Verification of patient identification for the specimen was done by the physician and premises technician using the patient's name and medical record number. A 30 mm polyp was found in the ileocecal valve. The polyp was sessile. Area was successfully injected with 20 mL saline with methylene blue for a lift polypectomy. Polypectomy was attempted, initially using a hot snare. Polyp resection was incomplete with this device. This intervention then required a different device and polypectomy technique. Polyp resection was incomplete. The resected tissue was retrieved. To prevent bleeding after mucosal resection, one hemostatic clip was successfully placed (MR conditional). There was no bleeding during, or at the end, of the procedure. A localized area of mucosa in the terminal ileum was moderately polypoid extension from IC valve. Biopsies were taken with a cold forceps for histology. Verification of patient identification for the specimen was done by the physician and premises technician using the patient's name and medical record number. The exam was otherwise without abnormality. Modifier 22. EMR performed with saline lift. Edges identified and injected for marking. The case requred five times the normal time for polypectomy with additional equipment- multiple snares. Non-bleeding internal hemorrhoids were found during retroflexion. The hemorrhoids were mild. Impression: - Preparation of the colon was fair. - Diverticulosis in the sigmoid colon. - One 8 mm polyp in the proximal ascending colon, removed with a hot snare. Resected and retrieved. - One 30 mm polyp at the ileocecal valve. Incomplete resection. Resected tissue retrieved. Injected. Clip (MR conditional) was placed. - Polypoid extension from IC valve mucosa in the terminal ileum. Biopsied. - The examination was otherwise normal. - Non-bleeding internal hemorrhoids. Recommendation: - Discharge patient to home (ambulatory). - Advance diet as tolerated. - Continue present medications. - Await pathology results. - Depending on path, patient will likely require surgical resection given extension into TI. The polyp was incompletely removed. MD Lico Anaya MD 01/24/2018 4:03:35 PM This report has been signed electronically. Note Initiated On: 01/24/2018 1:43 PM I attest to the content of the Intraoperative Record and orders documented therein, exceptions below
--- NOTE | 2018-01-24 16:16 | Anesthesiology Progress Note ---
Anesthesia Post Op Note Date & Time Jan 24, 2018 at 16:16 Vital Signs Pain Intensity: 0 Vital Signs Past 12 Hours Date Time Temp Pulse Resp B/P (MAP) Pulse Ox O2 Delivery O2 Flow Rate FiO2 01/24/18 16:05 59 19 131/77 94 Room Air 01/24/18 15:55 64 14 147/86 100 Room Air 01/24/18 15:47 36.3 69 16 141/75 100 Room Air 01/24/18 13:02 36.5 70 16 158/85 (109) 99 Room Air Notes Mental Status: alert / awake / arousable, participated in evaluation Pt Amnestic to Procedure: Yes Nausea / Vomiting: adequately controlled Pain: adequately controlled Airway Patency, RR, SpO2: stable & adequate BP & HR: stable & adequate Hydration State: stable & adequate Anesthetic Complications: no major complications apparent
[2018-01-24 16:48] VITALS: BP 140/73; PULSE 63; TEMP 36.3; O2SAT 92
== END 2018-01-24 17:15 | disposition home or self-care (01) ==
LOC: C.GI 12:07
PROVIDERS: ATTEND Internal Medicine Gastroenterology
DX: D12.2 Benign neoplasm of ascending colon (principal); D12.0 Benign neoplasm of cecum; K64.8 Other hemorrhoids; K57.30 Diverticulosis of large intestine without perforation or abscess without bleeding; I10 Essential (primary) hypertension; F17.200 Nicotine dependence, unspecified, uncomplicated; B19.20 Unspecified viral hepatitis C without hepatic coma; Z79.82 Long term (current) use of aspirin